=== PATIENT | male | born 1955 | race Caucasian/White ===

== ENCOUNTER → 2017-10-01 | Outpatient (CLI) | payer OTHER ==
--- NOTE | 2017-10-01 13:37 | US ---
EXAMINATION TYPE: US venous doppler duplex LE RT DATE OF EXAM: 10/01/2017 1:24 PM COMPARISON: NONE CLINICAL HISTORY: R22.41 SWELLING, MASS AND LUMP. SIDE PERFORMED: Right TECHNIQUE: The lower extremity deep venous system is examined utilizing real time linear array sonog oniel with graded compression, doppler sonography and color-flow sonography. VESSELS IMAGED: External Iliac Vein (EIV) Common Femoral Vein Deep Femoral Vein Greater Saphenous Vein * Femoral Vein Popliteal Vein Small Saphenous Vein * Proximal Calf Veins (* superficial vessels) Right Leg: Negative for DVT IMPRESSION: 1. Right lower extremity venous ultrasound negative for deep venous thrombosis.
== END | disposition home or self-care (01) ==
LOC: RADUSWWP 13:01
PROVIDERS: ATTEND Family Medicine
DX: R22.41 Localized swelling, mass and lump, right lower limb (principal)

== ENCOUNTER 2018-10-13 10:02 | Day surgery (SDC) | payer OTHER ==
[2018-10-12 12:39] VITALS: BMI 43.0
--- NOTE | 2018-10-13 09:30 | P.GSHP ---
History of Present Illness H&P Date: 10/13/18 CHIEF COMPLAINT: Colon screen HISTORY OF PRESENT ILLNESS: The patient is a 63-year-old male who presents for colon screen. Lower endoscopy was offered for further evaluation and management. PAST MEDICAL HISTORY: Please see list. PAST SURGICAL HISTORY: Please see list. MEDICATIONS: Please see list. ALLERGIES: Please see list. SOCIAL HISTORY: No illicit drug use FAMILY HISTORY: No reports of Crohn disease or ulcerative colitis. REVIEW OF ORGAN SYSTEMS: CONSTITUTIONAL: No reports of fevers or chills. PHYSICAL EXAM: VITAL SIGNS: Stable GENERAL: Well-developed pleasant in no acute distress. HEENT: No scleral icterus. Extraocular movements grossly intact. Moist buccal mucosa. NECK: Supple without lymphadenopathy. CHEST: Unlabored respirations. Equal bilateral excursions. CARDIOVASCULAR: Regular rate and rhythm. Distal 2+ pulses. ABDOMEN: Soft, nontender, nondistended. MUSCULOSKELETAL: No clubbing, cyanosis, or edema. ASSESSMENT: 1. Colon screen. PLAN: 1. Recommend proceeding with a lower endoscopy Past Medical History Past Medical History: Diabetes Mellitus, Hypertension, Liver Disease Additional Past Medical History / Comment(s): hx. hepatitis A 40 yrs ago History of Any Multi-Drug Resistant Organisms: None Reported Additional Past Surgical History / Comment(s): colonoscopies, vasectomy Past Anesthesia/Blood Transfusion Reactions: No Reported Reaction Smoking Status: Never smoker Medications and Allergies Home Medications Medication Instructions Recorded Confirmed Type ALPRAZolam [Xanax] 0.25 mg PO BID PRN 10/12/18 10/12/18 History Aspirin 81 mg PO DAILY 10/12/18 10/12/18 History Furosemide [Lasix] 40 mg PO DAILY 10/12/18 10/12/18 History Lisinopril [Zestril] 10 mg PO DAILY 10/12/18 10/12/18 History Potassium Chloride [Klor-Con 10] 10 meq PO DAILY 10/12/18 10/12/18 History Sertraline [Zoloft] 50 mg PO DAILY 10/12/18 10/12/18 History Sildenafil Citrate [Viagra] 50 mg PO ONCE PRN 10/12/18 10/12/18 History metFORMIN HCL [Glucophage] 1,000 mg PO DAILY 10/12/18 10/12/18 History sitaGLIPtin [Januvia] 100 mg PO DAILY 10/12/18 10/12/18 History Allergies Allergy/AdvReac Type Severity Reaction Status Date / Time No Known Allergies Allergy Verified 10/12/18 12:24
[~2018-10-13 10:02] MED LIST: LACTATED RINGERS 1,000 ML IV SCH
[2018-10-13 11:12] VITALS: TEMP 97.5
[2018-10-13] MEDS ORDERED: LIDOCAINE 1% 20 ML VIAL (10MG/ML) FOR IV START INTRADERMA ONE (11:15)
[2018-10-13] MEDS ORDERED: PROPOFOL 10 MG/ML 20 ML VIAL IV ONE (11:23)
[2018-10-13 11:29] LABS: Glucose,Whole Blood 141 mg/dL (75-99)
--- NOTE | 2018-10-13 11:50 | P.PCN ---
Date of Procedure: 10/13/18 Description of Procedure: PREOPERATIVE DIAGNOSIS: Colonoscopy screening POSTOPERATIVE DIAGNOSIS: Colonoscopy screening Proximal transverse colon polyp Pandiverticulosis External hemorrhoids, grade 2. OPERATION: Colonoscopy to the ileocecal valve and appendiceal orifice. Colonoscopy with polypectomy using cold forceps biopsy. SURGEON: Marisa Narvaez MD. ANESTHESIA: MAC. INDICATIONS: The patient is a 63-year-old male who presents for colonoscopy screening. Last colonoscopy 12 years ago. Benefits and risks were described and informed consent was obtained. DESCRIPTION OF PROCEDURE: The patient had undergone Suprep. He had been brought into the operating room and laid in the left lateral decubitus position. After adequate intravenous sedation, the rectum was examined with 2% lidocaine jelly. The prostate was unremarkable. External hemorrhoids were encountered. The rectal tone was within normal limits. No lesions were palpated in the rectal vault. An Olympus colonoscope was advanced until the ileocecal valve and appendiceal orifice were clearly viewed. The prep was excellent with visualization of the mucosal folds. Scattered diverticulosis was encountered throughout the colon. Proximal transverse colon polyp was treated with cold forcep biopsy. No evidence of focal colitis was found. Retroflexion of the scope demonstrated grade 1 internal hemorrhoids without active bleeding or inflammation. The colon was desufflated. The patient had tolerated the procedure well. Withdrawal time was over 6 minutes. FINDINGS: Aronchick preparation quality scale 1 (1-5) Internal hemorrhoids, grade 1 External hemorrhoids, grade 2. No arteriovenous malformations. Pandiverticulosis Removal of 1 polyp: - Cold forceps biopsy at proximal transverse colon, 4 mm polyp. No focal colitis. RECOMMENDATIONS: Repeat colonoscopy in 5 years, 2023 Plan - Discharge Summary Discharge Rx Participant: No New Discharge Prescriptions: No Action Sildenafil Citrate [Viagra] 50 mg PO ONCE PRN PRN Reason: erectile dysfunction Lisinopril [Zestril] 10 mg PO DAILY ALPRAZolam [Xanax] 0.25 mg PO BID PRN PRN Reason: Anxiety sitaGLIPtin [Januvia] 100 mg PO DAILY metFORMIN HCL [Glucophage] 1,000 mg PO DAILY Sertraline [Zoloft] 50 mg PO DAILY Furosemide [Lasix] 40 mg PO DAILY Aspirin 81 mg PO DAILY Potassium Chloride [Klor-Con 10] 10 meq PO DAILY Discharge Medication List ALPRAZolam [Xanax] 0.25 mg PO BID PRN 10/12/18 [History] Aspirin 81 mg PO DAILY 10/12/18 [History] Furosemide [Lasix] 40 mg PO DAILY 10/12/18 [History] Lisinopril [Zestril] 10 mg PO DAILY 10/12/18 [History] Potassium Chloride [Klor-Con 10] 10 meq PO DAILY 10/12/18 [History] Sertraline [Zoloft] 50 mg PO DAILY 10/12/18 [History] Sildenafil Citrate [Viagra] 50 mg PO ONCE PRN 10/12/18 [History] metFORMIN HCL [Glucophage] 1,000 mg PO DAILY 10/12/18 [History] sitaGLIPtin [Januvia] 100 mg PO DAILY 10/12/18 [History] Follow up Appointment(s)/Referral(s): Marisa Narvaez MD [STAFF PHYSICIAN] - As Needed Patient Instructions/Handouts: Diverticulosis (DC), Colorectal Polyps (GEN), Diverticulosis Diet (GEN) Activity/Diet/Wound Care/Special Instructions: Repeat colonoscopy in 5 years, 2023 Discharge Disposition: HOME SELF-CARE
[2018-10-13 11:56] VITALS: BP 148/78
[2018-10-13 12:16] VITALS: PULSE 67; RESP 16
== END 2018-10-13 12:20 | disposition home or self-care (01) ==
LOC: ORWHC2ENDO 10:02
PROVIDERS: ATTEND Surgery Plastic and Reconstructive Surgery
DX: Z12.11 Encounter for screening for malignant neoplasm of colon (principal); D12.3 Benign neoplasm of transverse colon; K57.30 Diverticulosis of large intestine without perforation or abscess without bleeding; K64.0 First degree hemorrhoids; K64.4 Residual hemorrhoidal skin tags; I10 Essential (primary) hypertension; E11.9 Type 2 diabetes mellitus without complications; K76.9 Liver disease, unspecified; F39 Unspecified mood [affective] disorder; G47.33 Obstructive sleep apnea (adult) (pediatric); Z79.82 Long term (current) use of aspirin; Z79.84 Long term (current) use of oral hypoglycemic drugs; Z79.899 Other long term (current) drug therapy; Z86.19 Personal history of other infectious and parasitic diseases; Z99.89 Dependence on other enabling machines and devices; Z98.890 Other specified postprocedural states
CPT/HCPCS: 45380; 88305

== ENCOUNTER → 2022-09-08 | Outpatient (CLI) | payer MEDICARE, OTHER ==
--- NOTE | 2022-09-08 16:20 | US ---
EXAMINATION TYPE: US venous doppler duplex LE LT DATE OF EXAM: 09/08/2022 4:08 PM COMPARISON: NONE CLINICAL INDICATION: Male, 67 years old with history of R60.0 LOCALIZED EDEMA; edema SIDE PERFORMED: left TECHNIQUE: The lower extremity deep venous system is examined utilizing real time linear array sonog oniel with graded compression, doppler sonography and color-flow sonography. VESSELS IMAGED: Common Femoral Vein Deep Femoral Vein Greater Saphenous Vein * Femoral Vein Popliteal Vein Small Saphenous Vein * Proximal Calf Veins (* superficial vessels) Left Leg: Negative for DVT IMPRESSION: Grayscale, color doppler, spectral doppler imaging performed of the deep veins of the lo wer extremities. There is normal flow, compressibility, vascular waveforms.
== END | disposition home or self-care (01) ==
LOC: RADUSWWP 15:24
PROVIDERS: ATTEND Family Medicine
DX: R60.0 Localized edema (principal)

== ENCOUNTER → 2023-02-03 | Outpatient (CLI) | payer MEDICARE, OTHER ==
--- NOTE | 2023-02-03 19:19 | XR ---
EXAMINATION TYPE: XR foot limited LT DATE OF EXAM: 02/03/2023 4:53 PM CLINICAL INDICATION:Male, 68 years old with history of [id number] CUTANEOUS ABSCESS OF LEFT FOOT; PH[facility] COMPARISON: None TECHNIQUE: XR foot limited LT examined in the AP, oblique, and lateral projections. FINDINGS: There is osseous erosion changes with possible pathologic fracture of the distal fifth metatarsal sha ft. Scattered multifocal degeneration changes with osteophyte formation and joint space narrowing. Soft tissue swelling throughout the foot. This course of the arterial vasculature. Calcaneal plantar spurring. Calcaneal Achilles enthesophyte formation. IMPRESSION: 1. No evidence of osteomyelitis involving the fifth digit metatarsal head and shaft possible underly ing pathologic fracture. 2. Multifocal degeneration changes with osteophyte formation joint space narrowing.
== END | disposition home or self-care (01) ==
LOC: RADXRMAIN 16:10
PROVIDERS: ATTEND Family Medicine
DX: L02.612 Cutaneous abscess of left foot (principal); M19.072 Primary osteoarthritis, left ankle and foot; M25.775 Osteophyte, left foot

== ENCOUNTER 2023-02-04 11:24 | Inpatient (IN) | payer MEDICARE, OTHER ==
--- NOTE | 2023-02-04 11:30 | ED ---
General Adult HPI - General Source: patient, RN notes reviewed Mode of arrival: ambulatory Limitations: no limitations <Aroldo Talbot - Last Filed: 02/04/23 11:29> - History of Present Illness Onset/Timin -: days(s) Location: left, lower extremity Quality: dull Consistency: constant Improves with: none Worsens with: other (Getting) Associated Symptoms: denies other symptoms Treatments Prior to Arrival: other (Antibiotics) <Michele Munoz - Last Filed: 02/06/23 07:11> - General Stated complaint: Lt foot infection Time Seen by Provider: 02/04/23 11:29 - History of Present Illness Initial comments: 68-year-old male presents emergency Department chief left foot infection. Patient was sent in by his PCP had an x-ray yesterday which is abnormal he states he has a sore on his foot. (Aroldo Talbot) This patient is a 68-year-old man who presents to have evaluation of left foot sore. The patient states that he first noticed some swelling developing approximate 7-10 days ago. He states that over the interval the swelling increased and eventually an ulcer developed. He saw his physician yesterday and she ordered an x-ray of the foot and gave him a shot of antibiotics. The patient states he received a call today telling him he needed to go to the hospital because there was a fracture in the foot. The patient has not noted systemic symptoms, no fever or chills, chest pain, dyspnea, palpitations. (Michele Munoz) - Related Data Home Medications Medication Instructions Recorded Confirmed ALPRAZolam [Xanax] 0.25 mg PO DAILY PRN 10/12/18 02/04/23 Aspirin 81 mg PO DAILY 10/12/18 02/04/23 Furosemide [Lasix] 40 mg PO DAILY 10/12/18 02/04/23 Sildenafil Citrate [Viagra] 50 mg PO ONCE PRN 10/12/18 02/04/23 lisinopriL [Zestril] 10 mg PO DAILY 10/12/18 02/04/23 metFORMIN HCL [Glucophage] 1,000 mg PO BID 10/12/18 02/04/23 Ascorbic Acid [Vitamin C] 500 mg PO DAILY 02/04/23 02/04/23 Atorvastatin [Lipitor] 40 mg PO DAILY 02/04/23 02/04/23 Dulaglutide [Trulicity] 3 mg SQ WE 02/04/23 02/04/23 Ferrous Sulfate [Feosol] 325 mg PO DAILY 02/04/23 02/04/23 Multivit-Min/FA/Lycopen/Lutein 1 tab PO DAILY 02/04/23 02/04/23 [Centrum Silver Tablet] Sertraline [Zoloft] 100 mg PO DAILY 02/04/23 02/04/23 Allergies Allergy/AdvReac Type Severity Reaction Status Date / Time No Known Allergies Allergy Verified 02/04/23 17:33 Review of Systems ROS Other: All systems not noted in ROS Statement are negative. <Aroldo Talbot - Last Filed: 02/04/23 11:29> ROS Other: All systems not noted in ROS Statement are negative. Constitutional: Denies: fever, chills Respiratory: Denies: cough, dyspnea Cardiovascular: Denies: chest pain, palpitations Gastrointestinal: Denies: abdominal pain, nausea, vomiting Genitourinary: Denies: dysuria, hematuria Musculoskeletal: Denies: back pain Skin: Reports: as per HPI, lesions Neurological: Denies: headache, weakness, numbness <Michele Munoz - Last Filed: 02/06/23 07:11> ROS Statement: Those systems with pertinent positive or pertinent negative responses have been documented in the HPI. Past Medical History Past Medical History: Diabetes Mellitus, Hypertension, Liver Disease Additional Past Medical History / Comment(s): hx. hepatitis A 40 yrs ago History of Any Multi-Drug Resistant Organisms: None Reported Additional Past Surgical History / Comment(s): colonoscopies, vasectomy Past Anesthesia/Blood Transfusion Reactions: No Reported Reaction Past Psychological History: Anxiety, Depression Past Alcohol Use History: Rare Past Drug Use History: None Reported <Aroldo Talbot - Last Filed: 02/04/23 11:29> General Exam <Aroldo Talbot - Last Filed: 02/04/23 11:29> General appearance: alert, in no apparent distress Head exam: Present: atraumatic, normocephalic Eye exam: Present: normal appearance. Absent: scleral icterus, conjunctival injection Neck exam: Present: normal inspection Respiratory exam: Present: normal lung sounds bilaterally. Absent: respiratory distress, wheezes, rales, rhonchi, stridor Cardiovascular Exam: Present: regular rate, normal rhythm, normal heart sounds. Absent: systolic murmur, diastolic murmur, rubs, gallop GI/Abdominal exam: Present: soft. Absent: tenderness Extremities exam: Present: normal capillary refill Left Lower Leg exam: Present: normal inspection, full ROM. Absent: tenderness, swelling Ankle exam: Present: normal inspection, full ROM. Absent: tenderness, swelling Foot/Toe exam: Present: swelling, puncture wound. Absent: calcaneal tenderness Neurovascular tendon exam: Present: no vascular compromise. Absent: pulse deficit, abnormal cap refill, motor deficit, sensory deficit, tendon deficit Neurological exam: Present: alert. Absent: motor sensory deficit Skin exam: Present: warm, dry, intact, normal color <Michele Munoz - Last Filed: 02/06/23 07:11> - General Exam Comments Initial Comments: Visual Physical Exam Vital signs reviewed General: Well-appearing, nontoxic, no acute distress. Head: Normocephalic, atraumatic Eyes: PERRLA, EOMI ENT: Airway patent Chest: Nonlabored breathing Skin: No visual rash, normal skin tone Neuro: Alert and oriented 3 Musculoskeletal: No gross abnormalities (Aroldo Talbot) Course Vital Signs 02/04/23 02/04/23 12:08 17:30 Temperature 99.2 F 97.8 F Pulse Rate 92 96 Respiratory 18 18 Rate Blood Pressure 113/75 131/71 O2 Sat by Pulse 96 95 Oximetry Medical Decision Making <Aroldo Talbot - Last Filed: 02/04/23 11:29> - Lab Data Result diagrams: 02/04/23 12:11 02/04/23 12:11 <Michele Munoz - Last Filed: 02/06/23 07:11> - Medical Decision Making I completed the quick note portion of this chart signed Aroldo Talbot PA-C (Aroldo Talbot) The patient had x-ray of the foot which does reveal metatarsal fracture adjacent to the ulcer Patient is 68-year-old man here to have further evaluation of ulcer of the left foot. The patient will be admitted to have further consultation including orthopedics given the associated fracture. Was pt. sent in by a medical professional or institution (, PA, ACQUISITION ASSOCIATE, urgent care, hospital, or prison...) When possible be specific @ -[Yes the patient was instructed to come to the emergency department by his primary physician Did you speak to anyone other than the patient for history (EMS, parent, family, police, friend...)? What history was obtained from this source @ -[No] Did you review nursing and triage notes (agree or disagree)? Why? @ -[I reviewed and agree with nursing and triage notes] Were old charts reviewed (outside hosp., previous admission, EMS record, old EKG, old radiological studies, urgent care reports/EKG's, prison records)? Report findings @ -[No old charts were reviewed] Differential Diagnosis (chest pain, altered mental status, abdominal pain women, abdominal pain men, vaginal bleeding, weakness, fever, dyspnea, syncope, headache, dizziness, GI bleed, back pain, seizure, CVA, palpatations, mental health, musculoskeletal)? @ -[Differential Musculoskeletal Muscular strain, contusion, ligament sprain, fracture, arthritis, septic arthritis, bursitis, cellulitis, muscle spasm, nerve compression, DVT, arterial occlusion, herpes zoster, electrolyte abnormality, tumor.... This is not meant to be in all inclusive list EKG interpreted by me (3pts min.). @ -[As above] X-rays interpreted by me (1pt min.). @ -[Interpreted as above CT interpreted by me (1pt min.). @ -[None done] U/S interpreted by me (1pt. min.). @ -[None done] What testing was considered but not performed or refused? (CT, X-rays, U/S, labs)? Why? @ -[None] What meds were considered but not given or refused? Why? @ -[None] Did you discuss the management of the patient with other professionals (professionals i.e. , PA, ACQUISITION ASSOCIATE, lab, RT, psych nurse, social media campaign manager, digital solution architect, teacher, major gifts officer, binder caser)? Give summary @ -[Yes, case is discussed with the admitting physician and also with healthcare network pricing consultant from orthopedics Was smoking cessation discussed for >3mins.? @ -[No] Was critical care preformed (if so, how long)? @ -[No] Were there social determinants of health that impacted care today? How? (Homelessness, low income, unemployed, alcoholism, drug addiction, transportation, low edu. Level, literacy, decrease access to med. care, [facility], rehab)? @ -[No] Was there de-escalation of care discussed even if they declined (Discuss DNR or withdrawal of care, Hospice)? DNR status @ -[No] What co-morbidities impacted this encounter? (DM, HTN, Smoking, COPD, CAD, Cancer, CVA, ARF, Chemo, Hep., AIDS, mental health diagnosis, sleep apnea, morbid obesity)? @ -[None] Was patient admitted / discharged? Hospital course, mention meds given and route, prescriptions, significant lab abnormalities, going to OR and other pertinent info. @ -[Patient be admitted to start antibiotic therapy and have further consultation Undiagnosed new problem with uncertain prognosis? @ -[No] Drug Therapy requiring intensive monitoring for toxicity (Heparin, Nitro, Insulin, Cardizem)? @ -[No] Were any procedures done? @ -[No] Diagnosis/symptom? @ -[Diabetic foot infection Fifth metatarsal fracture Acute, or Chronic, or Acute on Chronic? @ -[Acute Uncomplicated (without systemic symptoms) or Complicated (systemic symptoms)? @ -[default] Side effects of treatment? @ -[No] Exacerbation, Progression, or Severe Exacerbation? @ -[No] Poses a threat to life or bodily function? How? (Chest pain, [place], HI, pneumonia, PE, COPD, DKA, ARF, appy, cholecystitis, CVA, Diverticulitis, Homicidal, Suicidal, threat to staff... and all critical care pts) @ -[This there is threat to the extremity associated with diabetic foot infection (Michele Munoz) - Lab Data Lab Results 02/04/23 02/04/23 02/04/23 Range/Units 12:11 12:11 12:11 WBC 9.1 (3.8-10.6) k/uL RBC 4.11 L (4.30-5.90) m/uL Hgb 12.4 L (13.0-17.5) gm/dL Hct 37.0 L (39.0-53.0) % MCV 90.1 (80.0-100.0) fL MCH 30.3 (25.0-35.0) pg MCHC 33.6 (31.0-37.0) g/dL RDW 13.6 (11.5-15.5) % Plt Count 270 (150-450) k/uL MPV 7.6 Neutrophils % 72 % Lymphocytes % 23 % Monocytes % 4 % Eosinophils % 1 % Basophils % 0 % Neutrophils # 6.6 (1.3-7.7) k/uL Lymphocytes # 2.1 (1.0-4.8) k/uL Monocytes # 0.3 (0-1.0) k/uL Eosinophils # 0.1 (0-0.7) k/uL Basophils # 0.0 (0-0.2) k/uL Sodium 137 (137-145) mmol/L Potassium 3.9 (3.5-5.1) mmol/L Chloride 98 (98-107) mmol/L Carbon Dioxide 23 (22-30) mmol/L Anion Gap 16 mmol/L BUN 19 (9-20) mg/dL Creatinine 0.91 (0.66-1.25) mg/dL Est GFR (CKD-EPI)AfAm >90 (>60 ml/min/1.73 sqM) Est GFR (CKD-EPI)NonAf 86 (>60 ml/min/1.73 sqM) Glucose 261 H (74-99) mg/dL Lactic Ac Sepsis Rflx Plasma Lactic Acid Gus 2.7 H* (0.7-2.0) mmol/L Calcium 8.8 (8.4-10.2) mg/dL Total Bilirubin 0.8 (0.2-1.3) mg/dL AST 25 (17-59) U/L ALT 23 (4-49) U/L Alkaline Phosphatase 100 (38-126) U/L C-Reactive Protein 4.4 H (<1.0) mg/dL Total Protein 7.9 (6.3-8.2) g/dL Albumin 3.8 (3.5-5.0) g/dL 02/04/23 02/04/23 Range/Units 13:52 16:35 WBC (3.8-10.6) k/uL RBC (4.30-5.90) m/uL Hgb (13.0-17.5) gm/dL Hct (39.0-53.0) % MCV (80.0-100.0) fL MCH (25.0-35.0) pg MCHC (31.0-37.0) g/dL RDW (11.5-15.5) % Plt Count (150-450) k/uL MPV Neutrophils % % Lymphocytes % % Monocytes % % Eosinophils % % Basophils % % Neutrophils # (1.3-7.7) k/uL Lymphocytes # (1.0-4.8) k/uL Monocytes # (0-1.0) k/uL Eosinophils # (0-0.7) k/uL Basophils # (0-0.2) k/uL Sodium (137-145) mmol/L Potassium (3.5-5.1) mmol/L Chloride (98-107) mmol/L Carbon Dioxide (22-30) mmol/L Anion Gap mmol/L BUN (9-20) mg/dL Creatinine (0.66-1.25) mg/dL Est GFR (CKD-EPI)AfAm (>60 ml/min/1.73 sqM) Est GFR (CKD-EPI)NonAf (>60 ml/min/1.73 sqM) Glucose (74-99) mg/dL Lactic Ac Sepsis Rflx Y Plasma Lactic Acid Gus 1.8 (0.7-2.0) mmol/L Calcium (8.4-10.2) mg/dL Total Bilirubin (0.2-1.3) mg/dL AST (17-59) U/L ALT (4-49) U/L Alkaline Phosphatase (38-126) U/L C-Reactive Protein (<1.0) mg/dL Total Protein (6.3-8.2) g/dL Albumin (3.5-5.0) g/dL Disposition <Aroldo Talbot - Last Filed: 02/04/23 11:29> Is patient prescribed a controlled substance at d/c from ED?: No <Michele Munoz - Last Filed: 02/06/23 07:11> Clinical Impression: Diabetic foot ulcer, Fracture of fifth metatarsal bone Disposition: ADMITTED IP TO THIS HOSP Condition: Fair
[2023-02-04 13:23] LABS: Basophils % (A) 0 %; Eosinophils # (A) 0.1 k/uL (0-0.7); Eosinophils % (A) 1 %; HGB 12.4 gm/dL (13.0-17.5); Lymphocytes # (A) 2.1 k/uL (1.0-4.8); Lymphocytes % (A) 23 %; MCH 30.3 pg (25.0-35.0); MCHC 33.6 g/dL (31.0-37.0); MCV 90.1 fL (80.0-100.0); Mean Platelet Volume 7.6; Monocytes # (A) 0.3 k/uL (0-1.0); Monocytes % (A) 4 %; Neutrophils # (A) 6.6 k/uL (1.3-7.7); Neutrophils % (A) 72 %; Platelet Count 270 k/uL (150-450); RBC 4.11 m/uL (4.30-5.90); RDW 13.6 % (11.5-15.5); WBC 9.1 k/uL (3.8-10.6)
[2023-02-04 13:41] LABS: ALT 23 U/L (4-49); AST 25 U/L (17-59); African American GFR (CKD) >90 (>60 ml/min/1.73 sqM); Albumin 3.8 g/dL (3.5-5.0); Alkaline Phosphatase 100 U/L (38-126); Anion Gap 16 mmol/L; Blood Urea Nitrogen 19 mg/dL (9-20); C Reactive Protein 4.4 mg/dL (<1.0); Calcium 8.8 mg/dL (8.4-10.2); Carbon Dioxide 23 mmol/L (22-30); Chloride 98 mmol/L (98-107); Glucose 261 mg/dL (74-99); Non-African American GFR(CKD) 86 (>60 ml/min/1.73 sqM); Potassium 3.9 mmol/L (3.5-5.1); Sodium 137 mmol/L (137-145); Total Bilirubin 0.8 mg/dL (0.2-1.3); Total Protein 7.9 g/dL (6.3-8.2)
[2023-02-04] MEDS ORDERED: ACETAMINOPHEN TAB 325 MG TAB PO PRN (16:09)
[2023-02-04] MEDS ORDERED: HYDROcodone/APAP 5-325MG 1 EACH TAB PO PRN (16:09)
[2023-02-04] MEDS ORDERED: NALOXONE 0.4 MG/ML 1 ML VIAL IV PRN (16:09)
[2023-02-04] MEDS: AMPICILLIN-SULBACTAM 3 GM in SODIUM CHLORIDE 0.9% 100 ML IVPB SCH ×2 (17:31→23:38)
[2023-02-04] MEDS ORDERED: ALPRAZolam 0.25 MG TAB PO PRN (18:30)
--- NOTE | 2023-02-04 22:45 | P.CONS ---
History of Present Illness - Reason for Consult Consult date: 02/04/23 - History of Present Illness Patient is a 68-year-old male with a past medical history significant for diabetes mellitus patient has been sent to the ER by his PCP for evaluation of a nonhealing wound to the left foot lateral more patient mention he noticed to having a blood blister to the left foot lateral border at the base of the fifth toe few days ago that subsequently ruptured and did have drainage of some bloodstained and foul-smelling material since then the patient did have not healing of this wound with associated swelling or redness to the left foot patient did have diabetic neuropathy hands do not have significant sensation of pain to the left foot area and the patient denies any history of any trauma patient was evaluated by his primary care physician and he did received a dose of intramuscular antibiotic in his gluteal and the patient was sent for a x-ray there was evidence of bony erosion changes with possible pathological fracture of the distal fifth metatarsal shaft after this report was available the patient PCP call the patient to go to the hospital patient on presentation to the hospital did have a low-grade fever of 99.2 degrees for night patient was not tachycardic hypotensive or hypoxic patient did have white count of 9.1 creatinine 0.91 lactic acid was 2.7 patient was started on Unasyn infectious disease was consulted for further management of antibiotic therapy Past Medical History Past Medical History: Diabetes Mellitus, Hypertension, Liver Disease Additional Past Medical History / Comment(s): hx. hepatitis A 40 yrs ago History of Any Multi-Drug Resistant Organisms: None Reported Additional Past Surgical History / Comment(s): colonoscopies, vasectomy Past Anesthesia/Blood Transfusion Reactions: No Reported Reaction Past Psychological History: Anxiety, Depression Smoking Status: Never smoker Past Alcohol Use History: Rare Past Drug Use History: None Reported Medications and Allergies Home Medications Medication Instructions Recorded Confirmed Type ALPRAZolam [Xanax] 0.25 mg PO DAILY PRN 10/12/18 02/04/23 History Aspirin 81 mg PO DAILY 10/12/18 02/04/23 History Furosemide [Lasix] 40 mg PO DAILY 10/12/18 02/04/23 History Sildenafil Citrate [Viagra] 50 mg PO ONCE PRN 10/12/18 02/04/23 History lisinopriL [Zestril] 10 mg PO DAILY 10/12/18 02/04/23 History metFORMIN HCL [Glucophage] 1,000 mg PO BID 10/12/18 02/04/23 History Ascorbic Acid [Vitamin C] 500 mg PO DAILY 02/04/23 02/04/23 History Atorvastatin [Lipitor] 40 mg PO DAILY 02/04/23 02/04/23 History Dulaglutide [Trulicity] 3 mg SQ WE 02/04/23 02/04/23 History Ferrous Sulfate [Feosol] 325 mg PO DAILY 02/04/23 02/04/23 History Multivit-Min/FA/Lycopen/Lutein 1 tab PO DAILY 02/04/23 02/04/23 History [Centrum Silver Tablet] Sertraline [Zoloft] 100 mg PO DAILY 02/04/23 02/04/23 History Allergies Allergy/AdvReac Type Severity Reaction Status Date / Time No Known Allergies Allergy Verified 02/04/23 17:33 Physical Exam Vitals: Vital Signs Temp Pulse Resp BP Pulse Ox 02/04/23 17:30 97.8 F 96 18 131/71 95 02/04/23 12:08 99.2 F 92 18 113/75 96 Intake and Output 02/04/23 02/04/23 02/04/23 06:59 14:59 22:59 Other: Weight 121.109 kg Results CBC & Chem 7: 02/04/23 12:11 02/04/23 12:11 Labs: Abnormal Lab Results - Last 24 Hours (Table) 02/04/23 02/04/23 02/04/23 Range/Units 12:11 12:11 12:11 RBC 4.11 L (4.30-5.90) m/uL Hgb 12.4 L (13.0-17.5) gm/dL Hct 37.0 L (39.0-53.0) % Glucose 261 H (74-99) mg/dL Plasma Lactic Acid Gus 2.7 H* (0.7-2.0) mmol/L C-Reactive Protein 4.4 H (<1.0) mg/dL Assessment and Plan Plan: 1-patient presented to hospital with nonhealing wound to the left foot lateral border at the base of his left fifth toe in this patient who did have abnormal x-ray with evidence of bony erosion and possible pathological fracture highly suspicious for osteomyelitis we will need to cover for the polymicrobial latanya associated with diabetic foot infection and osteomyelitis 2-deep local culture has been obtained to guide further antibiotic therapy 3-patient would benefit from surgical debridement of the wound and deep culture for which vascular surgery will be consulted 4-we will continue patient on empiric Unasyn 3 g every 6 hours while waiting for the culture to finalize 5-local wound care with the Medihoney followed by moist dressing change daily We will follow on clinical condition and cultures to further adjust medication if needed Thank you for this consultation we will follow the patient along with you Dictation was produced using [employer] dictation software. please excuse any grammatical, word or spelling errors. Time with Patient: Greater than 30
[2023-02-04] MEDS: SODIUM CHLORIDE 0.9% 1,000 ML IV SCH (23:37)
[2023-02-05] MEDS: metFORMIN 500 MG TAB PO SCH ×2 (06:47→17:14)
[2023-02-05] MEDS: AMPICILLIN-SULBACTAM 3 GM in SODIUM CHLORIDE 0.9% 100 ML IVPB SCH ×4 (06:47→23:03)
[2023-02-05] MEDS: ATORVASTATIN 40 MG TAB PO SCH (07:59)
[2023-02-05] MEDS: ASPIRIN 81 MG PO SCH (07:59)
[2023-02-05] MEDS: FUROSEMIDE 40 MG TAB PO SCH (08:00)
[2023-02-05] MEDS: lisinopriL 10 MG TAB PO SCH (08:00)
[2023-02-05] MEDS: SERTRALINE 100 MG TAB PO SCH (08:00)
[2023-02-05] MEDS: FAMOTIDINE 20 MG/2 ML VIAL IV SCH ×2 (08:30→20:04)
[2023-02-05] MEDS: HEPARIN SODIUM,PORCINE 5,000 UNIT/ML 1 ML VIAL SQ SCH ×2 (08:30→20:04)
[2023-02-05] MEDS ORDERED: SERTRALINE 50 MG TAB PO SCH (09:00)
[2023-02-05] MEDS ORDERED: LINAGLIPTIN 5 MG TABLET PO SCH (09:00)
[2023-02-05] MEDS ORDERED: metFORMIN 500 MG TAB PO SCH (09:00)
--- NOTE | 2023-02-05 13:28 | P.HPIM ---
History of Present Illness This is a pleasant 68 years old male with past medical history of Diabetes Mellitus, Hypertension, Liver Disease , Anxiety and depression Patient presents because of diabetic foot infection, it happens as a pump about 10-12 days ago which quickly was getting swollen, he wanted to see his PCP who did x-ray and send him to the emergency room. He denies any other complaints, no chest pain or dyspnea, no change in urine or bowel habits He denies smoking or alcohol or illicit drugs. Hemodynamically stable Labs stable, his hemoglobin is 12. he Is currently on Unasyn and continued and his metformin 100,000, Lasix 40 daily and aspirin Review of Systems Review of systems CONSTITUTIONAL: No fever, no malaise, no fatigue. HEENT: No recent visual problems or hearing problems. Denied any sore throat. CARDIOVASCULAR: No orthopnea, PND, no palpitations, no syncope. PULMONARY: No shortness of breath, no cough, no hemoptysis. GASTROINTESTINAL: No diarrhea, no nausea, no vomiting, no abdominal pain. Normoactive bowel sounds. NEUROLOGICAL: No headaches, no weakness, no numbness. HEMATOLOGICAL: Denies any bleeding or petechiae. GENITOURINARY: Denies any burning micturition, frequency, or urgency. MUSCULOSKELETAL/RHEUMATOLOGICAL: Denies any joint pain, swelling, or any muscle pain. ENDOCRINE: Denies any polyuria or polydipsia. Past Medical History Past Medical History: Diabetes Mellitus, Hypertension, Liver Disease Additional Past Medical History / Comment(s): hx. hepatitis A 40 yrs ago History of Any Multi-Drug Resistant Organisms: None Reported Additional Past Surgical History / Comment(s): colonoscopies, vasectomy Past Anesthesia/Blood Transfusion Reactions: No Reported Reaction Past Psychological History: Anxiety, Depression Smoking Status: Never smoker Past Alcohol Use History: Rare Past Drug Use History: None Reported Medications and Allergies Home Medications Medication Instructions Recorded Confirmed Type ALPRAZolam [Xanax] 0.25 mg PO DAILY PRN 10/12/18 02/04/23 History Aspirin 81 mg PO DAILY 10/12/18 02/04/23 History Furosemide [Lasix] 40 mg PO DAILY 10/12/18 02/04/23 History Sildenafil Citrate [Viagra] 50 mg PO ONCE PRN 10/12/18 02/04/23 History lisinopriL [Zestril] 10 mg PO DAILY 10/12/18 02/04/23 History metFORMIN HCL [Glucophage] 1,000 mg PO BID 10/12/18 02/04/23 History Ascorbic Acid [Vitamin C] 500 mg PO DAILY 02/04/23 02/04/23 History Atorvastatin [Lipitor] 40 mg PO DAILY 02/04/23 02/04/23 History Dulaglutide [Trulicity] 3 mg SQ WE 02/04/23 02/04/23 History Ferrous Sulfate [Feosol] 325 mg PO DAILY 02/04/23 02/04/23 History Multivit-Min/FA/Lycopen/Lutein 1 tab PO DAILY 02/04/23 02/04/23 History [Centrum Silver Tablet] Sertraline [Zoloft] 100 mg PO DAILY 02/04/23 02/04/23 History Allergies Allergy/AdvReac Type Severity Reaction Status Date / Time No Known Allergies Allergy Verified 02/04/23 17:33 Physical Exam Vitals: Vital Signs Temp Pulse Pulse Resp BP BP Pulse Ox 02/05/23 01:07 97.9 F 84 17 156/79 94 L 02/04/23 17:30 97.8 F 96 18 131/71 95 02/04/23 12:08 99.2 F 92 18 113/75 96 Intake and Output 02/04/23 02/05/23 02/05/23 22:59 06:59 14:59 Other: # Voids 2 Weight 121.109 kg GENERAL: The patient is alert and oriented x3, not in any acute distress. Well developed, well nourished. HEENT: Pupils are round and equally reacting to light. EOMI. No scleral icterus. No conjunctival pallor. Normocephalic, atraumatic. No pharyngeal erythema. No thyromegaly. CARDIOVASCULAR: S1 and S2 present. No murmurs, rubs, or gallops. PULMONARY: Chest is clear to auscultation, no wheezing , no crackles. ABDOMEN: Soft, nontender, nondistended, normoactive bowel sounds. No palpable organomegaly. MUSCULOSKELETAL: No joint swelling or deformity. -EXTREMITIES: No cyanosis, clubbing, or pedal edema. Left foot cellulitis and i nfection NEUROLOGICAL: Gross neurological examination did not reveal any focal deficits. SKIN: No rashes. no petechiae. Results CBC & Chem 7: 02/04/23 12:11 02/04/23 12:11 Labs: Abnormal Lab Results - Last 24 Hours (Table) 02/04/23 02/04/23 02/04/23 Range/Units 12:11 12:11 12:11 RBC 4.11 L (4.30-5.90) m/uL Hgb 12.4 L (13.0-17.5) gm/dL Hct 37.0 L (39.0-53.0) % Glucose 261 H (74-99) mg/dL Plasma Lactic Acid Gus 2.7 H* (0.7-2.0) mmol/L C-Reactive Protein 4.4 H (<1.0) mg/dL Microbiology - Last 24 Hours (Table) 02/04/23 19:00 Gram Stain - Preliminary Foot - Left Thrombosis Risk Factor Assmnt - Choose All That Apply Any of the Below Risk Factors Present?: Yes Each Factor Represents 1 point: Obesity (BMI >25) Thrombosis Risk Factor Assessment Total Risk Factor Score: 1 Thrombosis Risk Factor Assessment Level: Low Risk Assessment and Plan Assessment: Left foot infection, diabetic wound with cellulitis and fifth tarsal fracture Diabetes mellitus Hypertension History of liver disease and hepatitis Anxiety and depression, not active tissue Plan: Continue with Unasyn ID team consult Vascular surgery team consult Orthopedic team evaluation Labs and medication were reviewed.. Continue same treatment. Continue with symptomatic treatment. Resume home medication. Monitor labs and vitals. DVT and GI prophylaxis. Further recommendations as per clinical course of the patient DVT prophylaxis: Subcutaneous heparin GI Prophylaxis: Pepcid PT/OT: Pending Prognosis is guarded
[2023-02-05] MEDS ORDERED: LIDOCAINE 1% INJ 10MG/ML (20 ML MDV) SQ ONE (15:47)
--- NOTE | 2023-02-05 15:52 | P.PN ---
Subjective Progress Note Date: 02/05/23 Principal diagnosis: Reason for follow-up is left diabetic foot infection concerning for osteomyelitis Patient is a 68-year-old male with a past medical history significant for diabetes mellitus patient has been sent to the ER by his PCP for evaluation of a nonhealing wound to the left foot lateral border and abnormal x-ray reported as possible pathological fracture. On today's evaluation that is 02/05/2023, the patient denies having any fever or chills, the patient is breathing comfortably on room air no chest pain shortness of breath or cough no nausea noted no abdominal pain patient did have diabetic neuropathy denies significant pain to the left foot wound area. Patient did have a sed rate of 65 and a CRP of 2.60 cultures are currently pending Objective - Vital Signs Vital signs: Vital Signs Temp 97.7 F 02/05/23 12:33 Pulse 86 02/05/23 12:33 Resp 16 02/05/23 12:33 BP 104/63 02/05/23 12:33 Pulse Ox 94 L 02/05/23 12:33 FiO2 Intake & Output 02/04/23 02/05/23 02/05/23 18:59 06:59 18:59 Weight 121.109 kg 121.109 kg Other: # Voids 2 - Exam GENERAL DESCRIPTION: An elderly male up n bed in no distress RESPIRATORY SYSTEM: Unlabored breathing , decreased breath sounds at bases HEART: S1 S2 regular rate and rhythm , ABDOMEN: Soft , no tenderness EXTREMITIES: Left foot is currently dressed no drainage on the dressing - Labs CBC & Chem 7: 02/04/23 12:11 02/04/23 12:11 Labs: Abnormal Lab Results - Last 24 Hours (Table) 02/04/23 02/04/23 02/05/23 Range/Units 12:11 12:11 06:01 ESR 65 H (0-20) mm/Hr Glucose 261 H (74-99) mg/dL Plasma Lactic Acid Gus 2.7 H* (0.7-2.0) mmol/L C-Reactive Protein 4.4 H (<1.0) mg/dL 02/05/23 Range/Units 06:01 ESR (0-20) mm/Hr Glucose (74-99) mg/dL Plasma Lactic Acid Gus (0.7-2.0) mmol/L C-Reactive Protein 2.60 H (<1.0) mg/dL Microbiology - Last 24 Hours (Table) 02/04/23 19:00 Gram Stain - Preliminary Foot - Left Assessment and Plan (1) Diabetic foot ulcer Current Visit: No Status: Acute Code(s): E11.621 - TYPE 2 DIABETES MELLITUS WITH FOOT ULCER; L97.509 - NON-PRESSURE CHRONIC ULCER OTH PRT UNSP FOOT W UNSP SEVERITY SNOMED Code(s): 178638366 Plan: 1-patient presented to hospital with nonhealing wound to the left foot lateral border at the base of his left fifth toe in this patient who did have abnormal x-ray with evidence of bony erosion and possible pathological fracture highly suspicious for osteomyelitis we will need to cover for the polymicrobial latanya associated with diabetic foot infection and osteomyelitis 2currently waiting for vascular surgery evaluation for debridement and deep culture some culture obtained in the ER yesterday and those are pending 3we will continue patient on Unasyn while waiting for the cultures to be completed, local wound care with Medihoney followed by moist dressing change daily Multiple question concern answered Dictation was produced using [employer] dictation software. please excuse any grammatical, word or spelling errors. Time with Patient: Less than 30
--- NOTE | 2023-02-05 16:41 | P.GSCN ---
History of Present Illness History of present illness: 68-year-old gentleman patient came to the emergency room with history of wound left foot lateral aspect for the past 11 days. Patient has history of diabetes patient is on IV antibiotic under infectious disease consulted for wound debridement Medical history history of diabetes hypertension no history of coronary disease Neck is supple the pressure chest is clear good and both lungs first and second sound present Abdomen soft nontender graft femorals are 1+ bilateral foot has a open wound with devitalized tissue and lateral aspect the left foot Plan is wound debridement and deep culture Past Medical History Past Medical History: Diabetes Mellitus, Hypertension, Liver Disease Additional Past Medical History / Comment(s): hx. hepatitis A 40 yrs ago History of Any Multi-Drug Resistant Organisms: None Reported Additional Past Surgical History / Comment(s): colonoscopies, vasectomy Past Anesthesia/Blood Transfusion Reactions: No Reported Reaction Past Psychological History: Anxiety, Depression Smoking Status: Never smoker Past Alcohol Use History: Rare Past Drug Use History: None Reported Medications and Allergies Home Medications Medication Instructions Recorded Confirmed Type ALPRAZolam [Xanax] 0.25 mg PO DAILY PRN 10/12/18 02/04/23 History Aspirin 81 mg PO DAILY 10/12/18 02/04/23 History Furosemide [Lasix] 40 mg PO DAILY 10/12/18 02/04/23 History Sildenafil Citrate [Viagra] 50 mg PO ONCE PRN 10/12/18 02/04/23 History lisinopriL [Zestril] 10 mg PO DAILY 10/12/18 02/04/23 History metFORMIN HCL [Glucophage] 1,000 mg PO BID 10/12/18 02/04/23 History Ascorbic Acid [Vitamin C] 500 mg PO DAILY 02/04/23 02/04/23 History Atorvastatin [Lipitor] 40 mg PO DAILY 02/04/23 02/04/23 History Dulaglutide [Trulicity] 3 mg SQ WE 02/04/23 02/04/23 History Ferrous Sulfate [Feosol] 325 mg PO DAILY 02/04/23 02/04/23 History Multivit-Min/FA/Lycopen/Lutein 1 tab PO DAILY 02/04/23 02/04/23 History [Centrum Silver Tablet] Sertraline [Zoloft] 100 mg PO DAILY 02/04/23 02/04/23 History Allergies Allergy/AdvReac Type Severity Reaction Status Date / Time No Known Allergies Allergy Verified 02/04/23 17:33 Surgical - Exam Vital Signs Temp Pulse Resp BP Pulse Ox 99.2 F 92 18 113/75 96 02/04/23 12:08 02/04/23 12:08 02/04/23 12:08 02/04/23 12:08 02/04/23 12:08 Results - Labs 02/04/23 12:11 02/04/23 12:11 Abnormal Lab Results - Last 24 Hours (Table) 02/05/23 02/05/23 Range/Units 06:01 06:01 ESR 65 H (0-20) mm/Hr C-Reactive Protein 2.60 H (0.00-0.80) mg/dL Microbiology - Last 24 Hours (Table) 02/04/23 19:00 Gram Stain - Preliminary Foot - Left
--- NOTE | 2023-02-05 16:43 | P.PCN ---
Description of Procedure: Preoperative diagnosis infected wound left foot lateral aspect measurement is 2 x 2 CM Postop same measurement is 3 x 2 x 1 cm Procedure left foot was prepped and draped applied sterile manner 1% lidocaine were infiltrated patient has a callus and necrotic tissue of the wound using knife we excise the debridement as tissue along with a callus down to subcu tissue fat and the tendon is exposed the debridement was tissue was excised no active bleeding was noted. Wound was irrigated with saline then replaced medihoney gel dressing applied patient for the procedure well deep culture was sent for aerobic and anaerobic
[2023-02-05] MEDS: SODIUM CHLORIDE 0.9% 1,000 ML IV SCH (17:51)
[2023-02-05 20:46] LABS: Glucose,Whole Blood 118 mg/dL (70-110)
[2023-02-06] MEDS: AMPICILLIN-SULBACTAM 3 GM in SODIUM CHLORIDE 0.9% 100 ML IVPB SCH ×4 (05:33→21:15)
[2023-02-06 06:17] LABS: Glucose,Whole Blood 114 mg/dL (70-110)
[2023-02-06 08:45] LABS: Basophils # (A) 0.03 X 10*3/uL (0.00-0.10); Basophils % (A) 0.4 %; Eosinophils # (A) 0.09 X 10*3/uL (0.04-0.35); Eosinophils % (A) 1.2 %; HCT 33.6 % (39.6-50.0); Lymphocytes # (A) 2.78 X 10*3/uL (0.90-5.00); Lymphocytes % (A) 36.2 %; MCH 30.1 pg (27.0-32.0); MCHC 32.7 g/dL (32.0-37.0); MCV 91.8 FL (80.0-97.0); Mean Platelet Volume 9.9 FL (9.5-12.2); Monocytes # (A) 0.49 X 10*3/uL (0.20-1.00); Monocytes % (A) 6.4 %; NRBC Per 100 WBC 0 X 10*3/uL (0.00-0.01); Neutrophils # (A) 4.26 X 10*3/uL (1.80-7.70); Neutrophils % (A) 55.3 %; Platelet Count 221 X 10*3/uL (140-440); RBC 3.66 X 10*6/uL (4.40-5.60); RDW 13.3 % (11.5-14.5); WBC 7.69 X 10*3/uL (4.50-10.00)
[2023-02-06] MEDS: metFORMIN 500 MG TAB PO SCH ×2 (09:29→17:08)
[2023-02-06] MEDS: ASPIRIN 81 MG PO SCH (09:29)
[2023-02-06] MEDS: FUROSEMIDE 40 MG TAB PO SCH (09:30)
[2023-02-06] MEDS: lisinopriL 10 MG TAB PO SCH (09:30)
[2023-02-06] MEDS: ATORVASTATIN 40 MG TAB PO SCH (09:30)
[2023-02-06] MEDS: HEPARIN SODIUM,PORCINE 5,000 UNIT/ML 1 ML VIAL SQ SCH ×2 (09:30→21:14)
[2023-02-06] MEDS: SERTRALINE 100 MG TAB PO SCH (09:30)
[2023-02-06] MEDS: FAMOTIDINE 20 MG/2 ML VIAL IV SCH ×2 (11:54→21:14)
[2023-02-06 11:58] VITALS: BMI 37.2
[2023-02-06 12:01] LABS: BUN/Creat Ratio 12.09 Ratio (12.00-20.00); Blood Urea Nitrogen 13.3 mg/dL (9.0-27.0); Calcium 8.6 mg/dL (8.7-10.3); Carbon Dioxide 27.8 mmol/L (21.6-31.8); Chloride 99 mmol/L (96-109); Glucose 114 mg/dL (70-110); Potassium 4.4 mmol/L (3.5-5.5); Sodium 139 mmol/L (135-145)
[2023-02-06 12:08] LABS: Glucose,Whole Blood 131 mg/dL (70-110)
[2023-02-06 16:46] LABS: Glucose,Whole Blood 144 mg/dL (70-110)
[2023-02-06] MEDS: SODIUM CHLORIDE 0.9% 1,000 ML IV SCH (17:10)
[2023-02-06 20:33] LABS: Glucose,Whole Blood 148 mg/dL (70-110)
--- NOTE | 2023-02-06 20:35 | P.PN ---
Subjective This is a pleasant 68 years old male with past medical history of Diabetes Mellitus, Hypertension, Liver Disease , Anxiety and depression Patient presents because of diabetic foot infection, it happens as a pump about 10-12 days ago which quickly was getting swollen, he wanted to see his PCP who did x-ray and send him to the emergency room. He denies any other complaints, no chest pain or dyspnea, no change in urine or bowel habits He denies smoking or alcohol or illicit drugs. Hemodynamically stable Labs stable, his hemoglobin is 12. he Is currently on Unasyn and continued and his metformin 100,000, Lasix 40 daily and aspirin 02/06/2023 patient status post I&D and debridement of his left foot infected wound Osteomyelitis is suspected for exposed bone Patient currently covered with Unasyn pending wound culture Objective - Vital Signs Vital signs: Vital Signs Temp 97.9 F 02/06/23 14:14 Pulse 80 02/06/23 14:14 Resp 18 02/06/23 14:14 BP 147/82 02/06/23 14:14 Pulse Ox 97 02/06/23 14:14 FiO2 Intake & Output 02/05/23 02/06/23 02/06/23 18:59 06:59 18:59 Weight 121.109 kg Other: # Voids 2 3 4 - Exam GENERAL: The patient is alert and oriented x3, not in any acute distress. Well developed, well nourished. HEENT: Pupils are round and equally reacting to light. EOMI. No scleral icterus. No conjunctival pallor. Normocephalic, atraumatic. No pharyngeal erythema. No thyromegaly. CARDIOVASCULAR: S1 and S2 present. No murmurs, rubs, or gallops. PULMONARY: Chest is clear to auscultation, no wheezing , no crackles. ABDOMEN: Soft, nontender, nondistended, normoactive bowel sounds. No palpable organomegaly. MUSCULOSKELETAL: No joint swelling or deformity. -EXTREMITIES: No cyanosis, clubbing, or pedal edema. Left foot cellulitis and infected surgical wound status post debridement. Dressing and a Place NEUROLOGICAL: Gross neurological examination did not reveal any focal deficits. SKIN: No rashes. no petechiae. - Labs CBC & Chem 7: 02/06/23 06:10 02/06/23 06:10 Labs: Abnormal Lab Results - Last 24 Hours (Table) 02/05/23 02/06/23 02/06/23 Range/Units 20:44 06:10 06:10 RBC 3.66 L (4.40-5.60) X 10*6/uL Hgb 11.0 L (13.0-17.0) g/dL Hct 33.6 L (39.6-50.0) % Anion Gap 12.20 H (4.00-12.00) mmol/L Glucose 114 H (70-110) mg/dL POC Glucose (mg/dL) 118 H (70-110) mg/dL Calcium 8.6 L (8.7-10.3) mg/dL 02/06/23 02/06/23 02/06/23 Range/Units 06:15 12:07 16:45 RBC (4.40-5.60) X 10*6/uL Hgb (13.0-17.0) g/dL Hct (39.6-50.0) % Anion Gap (4.00-12.00) mmol/L Glucose (70-110) mg/dL POC Glucose (mg/dL) 114 H 131 H 144 H (70-110) mg/dL Calcium (8.7-10.3) mg/dL Microbiology - Last 24 Hours (Table) 02/05/23 16:18 Gram Stain - Preliminary Foot - Left 02/04/23 12:11 Blood Culture - Preliminary Blood 02/04/23 12:11 Blood Culture - Preliminary Blood 02/04/23 19:00 Gram Stain - Preliminary Foot - Left Wound Culture - Preliminary Beta Hemolytic Strep Group C Assessment and Plan Assessment: Left foot infection, diabetic wound with cellulitis and fifth tarsal fracture. Osteomyelitis suspected Diabetes mellitus Hypertension History of liver disease and hepatitis Anxiety and depression, not active tissue Plan: Continue with Unasyn ID team consult Vascular surgery team consult Orthopedic team evaluation Labs and medication were reviewed.. Continue same treatment. Continue with symptomatic treatment. Resume home medication. Monitor labs and vitals. DVT and GI prophylaxis. Further recommendations as per clinical course of the stephanie man DVT prophylaxis: Subcutaneous heparin GI Prophylaxis: Pepcid PT/OT: Pending Prognosis is guarded
--- NOTE | 2023-02-06 21:53 | PN ---
PROGRESS NOTE This is a 68-year-old gentleman who came with infected wound on the lateral aspect of the foot with devitalized tissue. We did the debridement, sent for culture and sensitivity, devitalized tissue. The patient's dressing is changed today. We used Medihoney gel, base of the wound is clean. No discharge noted. The patient is going to have a PICC line and long-term antibiotic. Plan is change dressing daily with Medihoney gel. The patient will need offloading shoes. MMODL / IJN: [id number] /
[2023-02-07] MEDS: AMPICILLIN-SULBACTAM 3 GM in SODIUM CHLORIDE 0.9% 100 ML IVPB SCH ×4 (05:21→23:40)
[2023-02-07] MEDS: metFORMIN 500 MG TAB PO SCH ×2 (05:59→17:51)
[2023-02-07 06:08] LABS: Glucose,Whole Blood 120 mg/dL (70-110)
[2023-02-07] MEDS: FAMOTIDINE 20 MG/2 ML VIAL IV SCH ×2 (08:49→21:00)
[2023-02-07] MEDS: SERTRALINE 100 MG TAB PO SCH (09:07)
[2023-02-07] MEDS: lisinopriL 10 MG TAB PO SCH (09:07)
[2023-02-07] MEDS: ATORVASTATIN 40 MG TAB PO SCH (09:07)
[2023-02-07] MEDS: ASPIRIN 81 MG PO SCH (09:07)
[2023-02-07] MEDS: FUROSEMIDE 40 MG TAB PO SCH (09:07)
[2023-02-07] MEDS: HEPARIN SODIUM,PORCINE 5,000 UNIT/ML 1 ML VIAL SQ SCH ×2 (09:08→21:00)
[2023-02-07 11:15] LABS: Glucose,Whole Blood 160 mg/dL (70-110)
--- NOTE | 2023-02-07 13:33 | P.PN ---
Subjective Progress Note Date: 02/06/23 Principal diagnosis: Reason for follow-up is left diabetic foot infection concerning for osteomyelitis Patient is a 68-year-old male with a past medical history significant for diabetes mellitus patient has been sent to the ER by his PCP for evaluation of a nonhealing wound to the left foot lateral border and abnormal x-ray reported as possible pathological fracture. On today's evaluation that is 02/06/2023 the patient remains to be afebrile, the patient is breathing comfortably on room air patient denies having any chest pain shortness of breath or cough no nausea vomiting no abdominal pain and denies having any pain to the left foot area. Patient did have a white count of 7.6, , Sed rate is 65 creatinine is 1.1 CRP 2.60 culture growing beta-hemolytic group C strep Objective - Vital Signs Vital signs: Vital Signs Temp 97.5 F L 02/06/23 08:00 Pulse 77 02/06/23 08:00 Resp 17 02/06/23 08:00 BP 151/74 02/06/23 08:00 Pulse Ox 97 02/06/23 08:00 FiO2 Intake & Output 02/05/23 02/06/23 02/06/23 18:59 06:59 18:59 Other: # Voids 2 3 - Exam GENERAL DESCRIPTION: An elderly male up n bed in no distress RESPIRATORY SYSTEM: Unlabored breathing , decreased breath sounds at bases HEART: S1 S2 regular rate and rhythm , ABDOMEN: Soft , no tenderness EXTREMITIES: Left foot is currently dressed no drainage on the dressing - Labs CBC & Chem 7: 02/06/23 06:10 02/06/23 06:10 Labs: Abnormal Lab Results - Last 24 Hours (Table) 02/05/23 02/05/23 02/06/23 Range/Units 06:01 20:44 06:10 RBC 3.66 L (4.40-5.60) X 10*6/uL Hgb 11.0 L (13.0-17.0) g/dL Hct 33.6 L (39.6-50.0) % ESR 65 H (0-20) mm/Hr POC Glucose (mg/dL) 118 H (70-110) mg/dL 02/06/23 Range/Units 06:15 RBC (4.40-5.60) X 10*6/uL Hgb (13.0-17.0) g/dL Hct (39.6-50.0) % ESR (0-20) mm/Hr POC Glucose (mg/dL) 114 H (70-110) mg/dL Microbiology - Last 24 Hours (Table) 02/04/23 12:11 Blood Culture - Preliminary Blood 02/04/23 12:11 Blood Culture - Preliminary Blood 02/04/23 19:00 Gram Stain - Preliminary Foot - Left Wound Culture - Preliminary Beta Hemolytic Strep Group C Assessment and Plan (1) Diabetic foot ulcer Current Visit: Yes Status: Acute Code(s): E11.621 - TYPE 2 DIABETES MELLITUS WITH FOOT ULCER; L97.509 - NON-PRESSURE CHRONIC ULCER OTH PRT UNSP FOOT W UNSP SEVERITY SNOMED Code(s): 961486432 Plan: 1-patient presented to hospital with nonhealing wound to the left foot lateral border at the base of his left fifth toe in this patient who did have abnormal x-ray with evidence of bony erosion and possible pathological fracture highly suspicious for osteomyelitis we will need to cover for the polymicrobial latanya associated with diabetic foot infection and osteomyelitis 2patient is status post surgical debridement of his left foot ulcer with deep cultures which are currently pending did not mention an extension down to the wound 3patient to continue with Unasyn concerning for underlying deep infection we will get a PICC line plan for Rocephin 2 g daily and oral Flagyl for 3 to 4 weeks depending upon clinical response PICC line has been ordered once antibiotic arranged he will be able to go home Dictation was produced using [employer] dictation software. please excuse any grammatical, word or spelling errors. Time with Patient: Less than 30
--- NOTE | 2023-02-07 13:35 | P.PN ---
Subjective Progress Note Date: 02/07/23 Principal diagnosis: Reason for follow-up is left diabetic foot infection concerning for osteomyelitis Patient is a 68-year-old male with a past medical history significant for diabetes mellitus patient has been sent to the ER by his PCP for evaluation of a nonhealing wound to the left foot lateral border and abnormal x-ray reported as possible pathological fracture. On today's evaluation that is 02/07/2023 the patient continues to be afebrile, the patient is breathing comfortably on room air, patient denies having any chest pain shortness of breath or cough the patient denies nausea vomiting no abdominal pain and denies having any pain to the left foot area. Patient unfortunately was unable to get his PICC line or midline yesterday and seem to be slightly upset Patient did have a white count of 7.6, and creatinine is 1.1 as of 02/06/2023, patient did have a ESR of 65 CRP 2.60 culture growing beta-hemolytic group C strep Objective - Vital Signs Vital signs: Vital Signs Temp 97.9 F 02/07/23 07:30 Pulse 77 02/07/23 07:30 Resp 20 02/07/23 07:30 BP 174/92 02/07/23 07:30 Pulse Ox 96 02/07/23 07:30 FiO2 Intake & Output 02/06/23 02/07/23 02/07/23 18:59 06:59 18:59 Weight 121.109 kg Other: # Voids 4 3 - Exam GENERAL DESCRIPTION: An elderly male up n bed in no distress RESPIRATORY SYSTEM: Unlabored breathing , decreased breath sounds at bases HEART: S1 S2 regular rate and rhythm , ABDOMEN: Soft , no tenderness EXTREMITIES: Left foot is currently dressed no drainage on the dressing - Labs CBC & Chem 7: 02/06/23 06:10 02/06/23 06:10 Labs: Abnormal Lab Results - Last 24 Hours (Table) 02/06/23 02/06/23 02/06/23 Range/Units 06:10 12:07 16:45 Anion Gap 12.20 H (4.00-12.00) mmol/L Glucose 114 H (70-110) mg/dL POC Glucose (mg/dL) 131 H 144 H (70-110) mg/dL Calcium 8.6 L (8.7-10.3) mg/dL 02/06/23 02/07/23 02/07/23 Range/Units 20:08 05:52 11:13 Anion Gap (4.00-12.00) mmol/L Glucose (70-110) mg/dL POC Glucose (mg/dL) 148 H 120 H 160 H (70-110) mg/dL Calcium (8.7-10.3) mg/dL Microbiology - Last 24 Hours (Table) 02/05/23 16:18 Gram Stain - Preliminary Foot - Left Wound Culture - Preliminary Beta Hemolytic Strep Group C 02/04/23 12:11 Blood Culture - Preliminary Blood 02/04/23 12:11 Blood Culture - Preliminary Blood 02/04/23 19:00 Gram Stain - Final Foot - Left Wound Culture - Final Beta Hemolytic Strep Group C Assessment and Plan (1) Diabetic foot ulcer Current Visit: Yes Status: Acute Code(s): E11.621 - TYPE 2 DIABETES MELLITUS WITH FOOT ULCER; L97.509 - NON-PRESSURE CHRONIC ULCER OTH PRT UNSP FOOT W UNSP SEVERITY SNOMED Code(s): 220292645 Plan: 1-patient presented to hospital with nonhealing wound to the left foot lateral border at the base of his left fifth toe in this patient who did have abnormal x-ray with evidence of bony erosion and possible pathological fracture highly suspicious for osteomyelitis we will need to cover for the polymicrobial latanya associated with diabetic foot infection and osteomyelitis 2patient is status post surgical debridement of his left foot ulcer with deep cultures which grew beta-hemolytic group C strep, the surgeon mention mention an extension down to the wound 3patient to continue with Unasyn, unfortunately the patient did not get his PICC line or midline yesterday even though outpatient Rocephin has been arranged for the patient once the patient get his line he will be able to go home on Rocephin 2 g daily and oral Flagyl and close outpatient follow-up Dictation was produced using [employer] dictation software. please excuse any grammatical, word or spelling errors. Time with Patient: Less than 30
[2023-02-07 16:42] LABS: Glucose,Whole Blood 180 mg/dL (70-110)
[2023-02-07 19:46] LABS: Glucose,Whole Blood 149 mg/dL (70-110)
--- NOTE | 2023-02-07 21:48 | P.PN ---
Subjective This is a pleasant 68 years old male with past medical history of Diabetes Mellitus, Hypertension, Liver Disease , Anxiety and depression Patient presents because of diabetic foot infection, it happens as a pump about 10-12 days ago which quickly was getting swollen, he wanted to see his PCP who did x-ray and send him to the emergency room. He denies any other complaints, no chest pain or dyspnea, no change in urine or bowel habits He denies smoking or alcohol or illicit drugs. Hemodynamically stable Labs stable, his hemoglobin is 12. he Is currently on Unasyn and continued and his metformin 100,000, Lasix 40 daily and aspirin 02/06/2023 patient status post I&D and debridement of his left foot infected wound Osteomyelitis is suspected for exposed bone Patient currently covered with Unasyn pending wound culture 02/07/2023 Patient's wound is Healing. Patient improving slowly Wound culture is growing beta hemolytic streptococcus group C Plan to be discharged on Rocephin 2 g daily and oral Flagyl Patient pending PICC line placement Objective - Vital Signs Vital signs: Vital Signs Temp 98.5 F 02/07/23 13:29 Pulse 70 02/07/23 13:29 Resp 20 02/07/23 13:29 BP 152/74 02/07/23 13:29 Pulse Ox 97 02/07/23 13:29 FiO2 Intake & Output 02/06/23 02/07/23 02/07/23 18:59 06:59 18:59 Weight 121.109 kg Other: # Voids 4 3 - Exam GENERAL: The patient is alert and oriented x3, not in any acute distress. Well developed, well nourished. HEENT: Pupils are round and equally reacting to light. EOMI. No scleral icterus. No conjunctival pallor. Normocephalic, atraumatic. No pharyngeal erythema. No thyromegaly. CARDIOVASCULAR: S1 and S2 present. No murmurs, rubs, or gallops. PULMONARY: Chest is clear to auscultation, no wheezing , no crackles. ABDOMEN: Soft, nontender, nondistended, normoactive bowel sounds. No palpable organomegaly. MUSCULOSKELETAL: No joint swelling or deformity. -EXTREMITIES: No cyanosis, clubbing, or pedal edema. Left foot cellulitis and infected surgical wound status post debridement. Dressing and a Place NEUROLOGICAL: Gross neurological examination did not reveal any focal deficits. SKIN: No rashes. no petechiae. - Labs CBC & Chem 7: 02/06/23 06:10 02/06/23 06:10 Labs: Abnormal Lab Results - Last 24 Hours (Table) 02/06/23 02/06/23 02/07/23 Range/Units 16:45 20:08 05:52 POC Glucose (mg/dL) 144 H 148 H 120 H (70-110) mg/dL 02/07/23 Range/Units 11:13 POC Glucose (mg/dL) 160 H (70-110) mg/dL Microbiology - Last 24 Hours (Table) 02/05/23 16:18 Gram Stain - Preliminary Foot - Left Wound Culture - Preliminary Beta Hemolytic Strep Group C 02/04/23 12:11 Blood Culture - Preliminary Blood 02/04/23 12:11 Blood Culture - Preliminary Blood 02/04/23 19:00 Gram Stain - Final Foot - Left Wound Culture - Final Beta Hemolytic Strep Group C Assessment and Plan Assessment: Left foot infection, diabetic wound with cellulitis and fifth tarsal fracture. Osteomyelitis suspected Diabetes mellitus Hypertension History of liver disease and hepatitis Anxiety and depression, not active tissue Plan: Continue with Unasyn ID team consult She pending PICC line placement for outpatient robotic Rocephin and oral Flagyl Labs and medication were reviewed.. Continue same treatment. Continue with symptomatic treatment. Resume home medication. Monitor labs and vitals. DVT and GI prophylaxis. Further recommendations as per clinical course of the patient DVT prophylaxis: Subcutaneous heparin GI Prophylaxis: Pepcid PT/OT: Pending Prognosis is guarded
[2023-02-08] MEDS: SODIUM CHLORIDE 0.9% 1,000 ML IV SCH ×2 (04:24→17:55)
[2023-02-08] MEDS: AMPICILLIN-SULBACTAM 3 GM in SODIUM CHLORIDE 0.9% 100 ML IVPB SCH ×4 (05:11→23:17)
[2023-02-08 05:36] LABS: Glucose,Whole Blood 114 mg/dL (70-110)
[2023-02-08] MEDS: ATORVASTATIN 40 MG TAB PO SCH (09:10)
[2023-02-08] MEDS: metFORMIN 500 MG TAB PO SCH ×2 (09:10→17:55)
[2023-02-08] MEDS: FAMOTIDINE 20 MG/2 ML VIAL IV SCH ×2 (09:10→21:13)
[2023-02-08] MEDS: FUROSEMIDE 40 MG TAB PO SCH (09:10)
[2023-02-08] MEDS: lisinopriL 10 MG TAB PO SCH (09:10)
[2023-02-08] MEDS: ASPIRIN 81 MG PO SCH (09:10)
[2023-02-08] MEDS: SERTRALINE 100 MG TAB PO SCH (09:10)
[2023-02-08] MEDS: HEPARIN SODIUM,PORCINE 5,000 UNIT/ML 1 ML VIAL SQ SCH ×2 (09:10→21:13)
[2023-02-08 11:06] LABS: Glucose,Whole Blood 189 mg/dL (70-110)
--- NOTE | 2023-02-08 16:08 | P.PN ---
Subjective Progress Note Date: 02/08/23 Principal diagnosis: Reason for follow-up is left diabetic foot infection concerning for osteomyelitis Patient is a 68-year-old male with a past medical history significant for diabetes mellitus patient has been sent to the ER by his PCP for evaluation of a nonhealing wound to the left foot lateral border and abnormal x-ray reported as possible pathological fracture. On today's evaluation that is 02/08/2023 the patient denies having any fever or any chills, the patient is breathing comfortably on room air patient denies having any chest pain shortness of breath or cough no nausea vomiting no abdominal pain no diarrhea with antibiotic therapy denies any worsening pain to the left foot wound area. No new labs were drawn today. Objective - Vital Signs Vital signs: Vital Signs Temp 98.0 F 02/08/23 08:18 Pulse 75 02/08/23 08:18 Resp 20 02/08/23 08:18 BP 139/71 02/08/23 08:18 Pulse Ox 97 02/08/23 08:18 FiO2 Intake & Output 02/07/23 02/08/23 02/08/23 18:59 06:59 18:59 Output Total 1 Balance -1 Output: Urine 1 Other: # Voids 3 - Exam GENERAL DESCRIPTION: An elderly male up n bed in no distress RESPIRATORY SYSTEM: Unlabored breathing , decreased breath sounds at bases HEART: S1 S2 regular rate and rhythm , ABDOMEN: Soft , no tenderness EXTREMITIES: Patient left foot lateral border wound base with minimal slough surrounding swelling redness has improved no drainage - Labs CBC & Chem 7: 02/06/23 06:10 02/06/23 06:10 Labs: Abnormal Lab Results - Last 24 Hours (Table) 02/07/23 02/07/23 02/08/23 Range/Units 16:41 19:43 05:34 POC Glucose (mg/dL) 180 H 149 H 114 H (70-110) mg/dL 02/08/23 Range/Units 11:05 POC Glucose (mg/dL) 189 H (70-110) mg/dL Microbiology - Last 24 Hours (Table) 02/05/23 16:18 Gram Stain - Final Foot - Left Wound Culture - Final Beta Hemolytic Strep Group C 02/04/23 19:00 Anaerobic Culture - Final Foot - Left Anaerobic Gm Negative Bacilli 02/04/23 12:11 Blood Culture - Preliminary Blood 02/04/23 12:11 Blood Culture - Preliminary Blood Assessment and Plan (1) Diabetic foot ulcer Current Visit: Yes Status: Acute Code(s): E11.621 - TYPE 2 DIABETES MELLITUS WITH FOOT ULCER; L97.509 - NON-PRESSURE CHRONIC ULCER OTH PRT UNSP FOOT W UNSP SEVERITY SNOMED Code(s): 052584707 Plan: 1-patient presented to hospital with nonhealing wound to the left foot lateral border at the base of his left fifth toe in this patient who did have abnormal x-ray with evidence of bony erosion and possible pathological fracture highly suspicious for osteomyelitis we will need to cover for the polymicrobial latanya associated with diabetic foot infection and osteomyelitis 2patient is status post surgical debridement of his left foot ulcer with deep cultures which grew beta-hemolytic group C strep, the surgeon mention mention an extension down to the wound 3patient to continue with Unasyn currently waiting for PICC line placement for outpatient antibiotic therapy local wound care to continue with the Medihoney followed by moist dressing change daily Dictation was produced using [employer] dictation software. please excuse any grammatical, word or spelling errors. Time with Patient: Less than 30
[2023-02-08 17:11] LABS: Glucose,Whole Blood 117 mg/dL (70-110)
[2023-02-08 20:48] LABS: Glucose,Whole Blood 124 mg/dL (70-110)
--- NOTE | 2023-02-08 21:57 | P.PN ---
Subjective This is a pleasant 68 years old male with past medical history of Diabetes Mellitus, Hypertension, Liver Disease , Anxiety and depression Patient presents because of diabetic foot infection, it happens as a pump about 10-12 days ago which quickly was getting swollen, he wanted to see his PCP who did x-ray and send him to the emergency room. He denies any other complaints, no chest pain or dyspnea, no change in urine or bowel habits He denies smoking or alcohol or illicit drugs. Hemodynamically stable Labs stable, his hemoglobin is 12. he Is currently on Unasyn and continued and his metformin 100,000, Lasix 40 daily and aspirin 02/06/2023 patient status post I&D and debridement of his left foot infected wound Osteomyelitis is suspected for exposed bone Patient currently covered with Unasyn pending wound culture 02/07/2023 Patient's wound is Healing. Patient improving slowly Wound culture is growing beta hemolytic streptococcus group C Plan to be discharged on Rocephin 2 g daily and oral Flagyl Patient pending PICC line placement 02/08/2023 Patient improving on IV antibiotics and is seen Plan to be discharged on intravenous ceftriaxone and oral Flagyl based on wound culture growing septic PENDING PICC line placement Plan discussed with patient and he is agreeable Objective - Vital Signs Vital signs: Vital Signs Temp 97.8 F 02/08/23 12:38 Pulse 84 02/08/23 12:38 Resp 20 02/08/23 12:38 BP 138/73 02/08/23 12:38 Pulse Ox 95 02/08/23 12:38 FiO2 Intake & Output 02/07/23 02/08/23 02/08/23 18:59 06:59 18:59 Output Total 1 Balance -1 Output: Urine 1 Other: # Voids 3 3 - Exam GENERAL: The patient is alert and oriented x3, not in any acute distress. Well developed, well nourished. HEENT: Pupils are round and equally reacting to light. EOMI. No scleral icterus. No conjunctival pallor. Normocephalic, atraumatic. No pharyngeal erythema. No thyromegaly. CARDIOVASCULAR: S1 and S2 present. No murmurs, rubs, or gallops. PULMONARY: Chest is clear to auscultation, no wheezing , no crackles. ABDOMEN: Soft, nontender, nondistended, normoactive bowel sounds. No palpable organomegaly. MUSCULOSKELETAL: No joint swelling or deformity. -EXTREMITIES: No cyanosis, clubbing, or pedal edema. Left foot cellulitis and infected surgical wound status post debridement. Dressing and a Place NEUROLOGICAL: Gross neurological examination did not reveal any focal deficits. SKIN: No rashes. no petechiae. - Labs CBC & Chem 7: 02/06/23 06:10 02/06/23 06:10 Labs: Abnormal Lab Results - Last 24 Hours (Table) 02/07/23 02/08/23 02/08/23 Range/Units 19:43 05:34 11:05 POC Glucose (mg/dL) 149 H 114 H 189 H (70-110) mg/dL 02/08/23 Range/Units 17:09 POC Glucose (mg/dL) 117 H (70-110) mg/dL Microbiology - Last 24 Hours (Table) 02/05/23 16:18 Gram Stain - Final Foot - Left Wound Culture - Final Beta Hemolytic Strep Group C 02/04/23 19:00 Anaerobic Culture - Final Foot - Left Anaerobic Gm Negative Bacilli 02/04/23 12:11 Blood Culture - Preliminary Blood 02/04/23 12:11 Blood Culture - Preliminary Blood Assessment and Plan Assessment: Left foot infection, diabetic wound with cellulitis and fifth tarsal fracture. Osteomyelitis suspected Diabetes mellitus Hypertension History of liver disease and hepatitis Anxiety and depression, not active tissue Plan: Continue with Unasyn ID team consult She pending PICC line placement for outpatient robotic Rocephin and oral Flagyl Labs and medication were reviewed.. Continue same treatment. Continue with symptomatic treatment. Resume home medication. Monitor labs and vitals. DVT and GI prophylaxis. Further recommendations as per clinical course of the p atient DVT prophylaxis: Subcutaneous heparin GI Prophylaxis: Pepcid PT/OT: Pending Prognosis is guarded
[2023-02-09] MEDS: AMPICILLIN-SULBACTAM 3 GM in SODIUM CHLORIDE 0.9% 100 ML IVPB SCH ×4 (05:22→23:12)
[2023-02-09 05:57] LABS: Glucose,Whole Blood 135 mg/dL (70-110)
[2023-02-09] MEDS: metFORMIN 500 MG TAB PO SCH ×2 (06:12→17:00)
[2023-02-09] MEDS: ASPIRIN 81 MG PO SCH (09:37)
[2023-02-09] MEDS: HEPARIN SODIUM,PORCINE 5,000 UNIT/ML 1 ML VIAL SQ SCH ×2 (09:37→20:22)
[2023-02-09] MEDS: FAMOTIDINE 20 MG/2 ML VIAL IV SCH ×2 (09:37→20:22)
[2023-02-09] MEDS: ATORVASTATIN 40 MG TAB PO SCH (09:37)
[2023-02-09] MEDS: FUROSEMIDE 40 MG TAB PO SCH (09:37)
[2023-02-09] MEDS: lisinopriL 10 MG TAB PO SCH (09:37)
[2023-02-09] MEDS: SERTRALINE 100 MG TAB PO SCH (09:37)
[2023-02-09] MEDS ORDERED: Potassium Replacement Protocol 1 EACH MISC MISCELLANE PRN (10:00)
[2023-02-09 11:13] LABS: Glucose,Whole Blood 185 mg/dL (70-110)
--- NOTE | 2023-02-09 15:46 | P.PN ---
Subjective Progress Note Date: 02/09/23 Principal diagnosis: Reason for follow-up is left diabetic foot infection concerning for osteomyelitis Patient is a 68-year-old male with a past medical history significant for diabetes mellitus patient has been sent to the ER by his PCP for evaluation of a nonhealing wound to the left foot lateral border and abnormal x-ray reported as possible pathological fracture. On today's evaluation that is 02/09/2023, the patient remains to be afebrile, the patient is breathing comfortably on room air without need for supplemental oxygen patient denies having any chest pain shortness of breath or cough, the patient denies any nausea vomiting tolerating her diet no abdominal pain and no diarrhea, denies pain to the left foot wound area The patient did not have any lab draw today culture positive for beta-hemolytic strep group C and anaerobic gram-negative bacilli Objective - Vital Signs Vital signs: Vital Signs Temp 97.9 F 02/09/23 13:55 Pulse 86 02/09/23 13:55 Resp 19 02/09/23 13:55 BP 160/75 02/09/23 13:55 Pulse Ox 95 02/09/23 13:55 FiO2 Intake & Output 02/08/23 02/09/23 02/09/23 18:59 06:59 18:59 Other: # Voids 3 3 - Exam GENERAL DESCRIPTION: An elderly male up n bed in no distress RESPIRATORY SYSTEM: Unlabored breathing , decreased breath sounds at bases HEART: S1 S2 regular rate and rhythm , ABDOMEN: Soft , no tenderness EXTREMITIES: Patient left foot lateral border wound base with minimal slough maurilio rounding swelling redness has improved no drainage - Labs CBC & Chem 7: 02/06/23 06:10 02/06/23 06:10 Labs: Abnormal Lab Results - Last 24 Hours (Table) 02/08/23 02/08/23 02/09/23 Range/Units 17:09 20:46 05:56 POC Glucose (mg/dL) 117 H 124 H 135 H (70-110) mg/dL 02/09/23 Range/Units 11:12 POC Glucose (mg/dL) 185 H (70-110) mg/dL Assessment and Plan (1) Diabetic foot ulcer Current Visit: Yes Status: Acute Code(s): E11.621 - TYPE 2 DIABETES MELLITUS WITH FOOT ULCER; L97.509 - NON-PRESSURE CHRONIC ULCER OTH PRT UNSP FOOT W UNSP SEVERITY SNOMED Code(s): 335279716 Plan: 1-patient presented to hospital with nonhealing wound to the left foot lateral border at the base of his left fifth toe in this patient who did have abnormal x-ray with evidence of bony erosion and possible pathological fracture highly suspicious for osteomyelitis we will need to cover for the polymicrobial latanya associated with diabetic foot infection and osteomyelitis 2patient is status post surgical debridement of his left foot ulcer with deep cultures which grew beta-hemolytic group C strep, the surgeon mention mention an extension down to the wound, However we will check a bone scan to make sure no evidence of any osteomyelitis and there was evidence of fracture on the plain x- rays. 3patient to continue with Unasyn hopefully he will get a PICC line tomorrow antibiotic will be transition to Rocephin 2 g daily and oral Flagyl and close outpatient follow-up Dictation was produced using [employer] dictation software. please excuse any grammatical, word or spelling errors. Time with Patient: Less than 30
[2023-02-09 16:23] LABS: Glucose,Whole Blood 151 mg/dL (70-110)
[2023-02-09] MEDS: SODIUM CHLORIDE 0.9% 1,000 ML IV SCH (17:00)
[2023-02-09 19:28] LABS: Glucose,Whole Blood 138 mg/dL (70-110)
--- NOTE | 2023-02-09 20:13 | P.PN ---
Subjective This is a pleasant 68 years old male with past medical history of Diabetes Mellitus, Hypertension, Liver Disease , Anxiety and depression Patient presents because of diabetic foot infection, it happens as a pump about 10-12 days ago which quickly was getting swollen, he wanted to see his PCP who did x-ray and send him to the emergency room. He denies any other complaints, no chest pain or dyspnea, no change in urine or bowel habits He denies smoking or alcohol or illicit drugs. Hemodynamically stable Labs stable, his hemoglobin is 12. he Is currently on Unasyn and continued and his metformin 100,000, Lasix 40 daily and aspirin 02/06/2023 patient status post I&D and debridement of his left foot infected wound Osteomyelitis is suspected for exposed bone Patient currently covered with Unasyn pending wound culture 02/07/2023 Patient's wound is Healing. Patient improving slowly Wound culture is growing beta hemolytic streptococcus group C Plan to be discharged on Rocephin 2 g daily and oral Flagyl Patient pending PICC line placement 02/08/2023 Patient improving on IV antibiotics and is seen Plan to be discharged on intravenous ceftriaxone and oral Flagyl based on wound culture growing septic PENDING PICC line placement Plan discussed with patient and he is agreeable 02/09/2023 No new complaints Pending PICC line placement for outpatient IV antibiotics Rocephin plus oral Flagyl Plan discussed with patient and he is agreeable Objective - Vital Signs Vital signs: Vital Signs Temp 97.9 F 02/09/23 13:55 Pulse 86 02/09/23 13:55 Resp 19 02/09/23 13:55 BP 160/75 02/09/23 13:55 Pulse Ox 95 02/09/23 13:55 FiO2 Intake & Output 02/09/23 02/09/23 02/10/23 06:59 18:59 06:59 Other: # Voids 3 4 # Bowel Movements 1 - Exam GENERAL: The patient is alert and oriented x3, not in any acute distress. Well developed, well nourished. HEENT: Pupils are round and equally reacting to light. EOMI. No scleral icterus. No conjunctival pallor. Normocephalic, atraumatic. No pharyngeal erythema. No thyromegaly. CARDIOVASCULAR: S1 and S2 present. No murmurs, rubs, or gallops. PULMONARY: Chest is clear to auscultation, no wheezing , no crackles. ABDOMEN: Soft, nontender, nondistended, normoactive bowel sounds. No palpable organomegaly. MUSCULOSKELETAL: No joint swelling or deformity. -EXTREMITIES: No cyanosis, clubbing, or pedal edema. Left foot cellulitis and infected surgical wound status post debridement. Dressing and a Place NEUROLOGICAL: Gross neurological examination did not reveal any focal deficits. SKIN: No rashes. no petechiae. - Labs CBC & Chem 7: 02/06/23 06:10 02/06/23 06:10 Labs: Abnormal Lab Results - Last 24 Hours (Table) 02/08/23 02/09/23 02/09/23 Range/Units 20:46 05:56 11:12 POC Glucose (mg/dL) 124 H 135 H 185 H (70-110) mg/dL 02/09/23 02/09/23 Range/Units 16:21 19:27 POC Glucose (mg/dL) 151 H 138 H (70-110) mg/dL Assessment and Plan Assessment: Left foot infection, diabetic wound with cellulitis and fifth tarsal fracture. Osteomyelitis suspected Diabetes mellitus Hypertension History of liver disease and hepatitis Anxiety and depression, not active tissue Plan: Continue with Unasyn ID team consult She pending PICC line placement for outpatient robotic Rocephin and oral Flagyl Labs and medication were reviewed.. Continue same treatment. Continue with symptomatic treatment. Resume home medication. Monitor labs and vitals. DVT and GI prophylaxis. Further recommendations as per clinical course of the patient DVT prophylaxis: Subcutaneous heparin GI Prophylaxis: Pepcid PT/OT: Pending Prognosis is guarded
[2023-02-10] MEDS: AMPICILLIN-SULBACTAM 3 GM in SODIUM CHLORIDE 0.9% 100 ML IVPB SCH ×2 (05:37→11:07)
[2023-02-10 06:05] LABS: Glucose,Whole Blood 127 mg/dL (70-110)
[2023-02-10] MEDS: metFORMIN 500 MG TAB PO SCH (06:13)
[2023-02-10 07:48] VITALS: RESP 19
[2023-02-10] MEDS: FAMOTIDINE 20 MG/2 ML VIAL IV SCH (08:23)
[2023-02-10] MEDS: lisinopriL 10 MG TAB PO SCH (08:34)
[2023-02-10] MEDS: FUROSEMIDE 40 MG TAB PO SCH (08:34)
[2023-02-10] MEDS: SERTRALINE 100 MG TAB PO SCH (08:34)
[2023-02-10] MEDS: HEPARIN SODIUM,PORCINE 5,000 UNIT/ML 1 ML VIAL SQ SCH (08:34)
[2023-02-10] MEDS: ASPIRIN 81 MG PO SCH (08:34)
[2023-02-10] MEDS: ATORVASTATIN 40 MG TAB PO SCH (08:34)
[2023-02-10 11:01] LABS: Glucose,Whole Blood 124 mg/dL (70-110)
--- NOTE | 2023-02-10 13:15 | P.PN ---
Subjective Progress Note Date: 02/10/23 Principal diagnosis: Reason for follow-up is left diabetic foot infection concerning for osteomyelitis Patient is a 68-year-old male with a past medical history significant for diabetes mellitus patient has been sent to the ER by his PCP for evaluation of a nonhealing wound to the left foot lateral border and abnormal x-ray reported as possible pathological fracture. On today's evaluation that is 02/10/2023 patient remains to be afebrile, the patient is breathing comfortably on room air, the patient denies chest pain shortness of breath or cough., The patient denies nausea vomiting, denies abdominal pain no diarrhea, denies pain to the left foot wound and is currently waiting for the PICC line placement No new labs has been obtained today culture positive for anaerobic gram-negative bacilli and beta-hemolytic strep group C Objective - Vital Signs Vital signs: Vital Signs Temp 97.8 F 02/10/23 07:09 Pulse 78 02/10/23 07:20 Resp 19 02/10/23 07:20 BP 130/78 02/10/23 07:09 Pulse Ox 100 02/10/23 07:09 FiO2 Intake & Output 02/09/23 02/10/23 02/10/23 18:59 06:59 18:59 Intake Total 700 Balance 700 Intake: Oral 700 Other: # Voids 4 4 # Bowel Movements 1 - Exam GENERAL DESCRIPTION: An elderly male up n bed in no distress RESPIRATORY SYSTEM: Unlabored breathing , decreased breath sounds at bases HEART: S1 S2 regular rate and rhythm , ABDOMEN: Soft , no tenderness EXTREMITIES: Patient left foot lateral border wound base with minimal slough surrounding swelling redness has improved no drainage - Labs CBC & Chem 7: 02/06/23 06:10 02/06/23 06:10 Labs: Abnormal Lab Results - Last 24 Hours (Table) 02/09/23 02/09/23 02/09/23 Range/Units 11:12 16:21 19:27 POC Glucose (mg/dL) 185 H 151 H 138 H (70-110) mg/dL 02/10/23 Range/Units 06:04 POC Glucose (mg/dL) 127 H (70-110) mg/dL Microbiology - Last 24 Hours (Table) 02/04/23 12:11 Blood Culture - Final Blood 02/04/23 12:11 Blood Culture - Final Blood Assessment and Plan (1) Diabetic foot ulcer Current Visit: Yes Status: Acute Code(s): E11.621 - TYPE 2 DIABETES MELLITUS WITH FOOT ULCER; L97.509 - NON-PRESSURE CHRONIC ULCER OTH PRT UNSP FOOT W UNSP SEVERITY SNOMED Code(s): 024776423 Plan: 1-patient presented to hospital with nonhealing wound to the left foot lateral border at the base of his left fifth toe in this patient who did have abnormal x-ray with evidence of bony erosion and possible pathological fracture highly suspicious for osteomyelitis we will need to cover for the polymicrobial latanya associated with diabetic foot infection and osteomyelitis 2patient is status post surgical debridement of his left foot ulcer with deep cultures which grew beta-hemolytic group C strep, the surgeon mention mention an extension down to the wound, Bone scan is currently in progress we will wait for results to be finalized. 3with no IR available to place a PICC line we will go ahead and order a midline antibiotic switched to Rocephin 2 g daily along with oral Flagyl 500 mg every 8 hours duration will depend upon the bones scan results, local wound care to continue with the [facility] followed by moist dressing change daily and follow- up in the office next week Dictation was produced using [employer] dictation software. please excuse any grammatical, word or spelling errors. Time with Patient: Less than 30
[2023-02-10 14:01] VITALS: BP 154/88; PULSE 88; TEMP 97.7
--- NOTE | 2023-02-10 14:32 | NM ---
EXAMINATION TYPE: NM bone 3 phase DATE OF EXAM: 02/10/2023 COMPARISON: NONE HISTORY: Left foot ulcer Images were obtained during blood flow, blood pool and delayed images. The patient was injected with 25.4 mCi Tc 99m MDP. Images were acquired 5.5 hours post injection. FINDINGS: Blood flow: There is increased radiotracer along the lateral left foot diffusely through the left lower extremity compared to the right. On close inspection, some minimal uptake in the region of the second digit is not excluded Blood pool: There is increased radiotracer accumulation along the distal fifth metatarsal region left foot. Some increased uptake is in the distal left second digit region. Some proximal midfoot uptake may be prese nt on the left as well. Static images: There is increased uptake through the fifth metatarsal, region of the second and third distal left foot digits IMPRESSION: 1. Increased uptake on all 3 phases of bone scan through the left fifth metatarsal region can be comp atible with osteomyelitis. 2. Uptake on the distal second digit blood pool and static images. Subtle uptake on the blood flow in this region, early osteomyelitis is not excluded.
== END 2023-02-10 16:21 | disposition home health service (06) | DRG 623 ==
LOC: EC 11:24 → 4SSUR 16:45
PROVIDERS: ADMIT Internal Medicine; ATTEND Internal Medicine
PROC: 0LBW0ZZ Excision of Left Foot Tendon, Open Approach (ICD-10-PCS; principal; 2023-02-05)
PROC: 02HV33Z Insertion of Infusion Device into Superior Vena Cava, Percutaneous Approach (ICD-10-PCS; 2023-02-10 17:30)
DX: E11.69 Type 2 diabetes mellitus with other specified complication (principal); E11.52 Type 2 diabetes mellitus with diabetic peripheral angiopathy with gangrene; I96 Gangrene, not elsewhere classified; L03.116 Cellulitis of left lower limb; M86.8X7 Other osteomyelitis, ankle and foot; E11.621 Type 2 diabetes mellitus with foot ulcer; L97.529 Non-pressure chronic ulcer of other part of left foot with unspecified severity; E11.628 Type 2 diabetes mellitus with other skin complications; F32.A Depression, unspecified; F41.9 Anxiety disorder, unspecified; I10 Essential (primary) hypertension; I25.10 Atherosclerotic heart disease of native coronary artery without angina pectoris; S92.352A Displaced fracture of fifth metatarsal bone, left foot, initial encounter for closed fracture; X58.XXXA Exposure to other specified factors, initial encounter; Z79.82 Long term (current) use of aspirin; Z79.84 Long term (current) use of oral hypoglycemic drugs; Z79.899 Other long term (current) drug therapy
CPT/HCPCS: 36410; 36415; 76937; 78315; 80048; 80053; 83605; 85025; 85652; 86140; 87040; 87070; 87075; 87205; 99285